=== PATIENT | male | born 1965 | race Caucasian/White ===

== ENCOUNTER 2020-01-07 08:47 | Emergency (ER) | payer BC, SELFPAY ==
--- NOTE | ~2020-01-07 | XR_ITS ---
EXAMINATION: XR ribs RT 2V INDICATION: Rib pain after fall, initial encounter TECHNIQUE: 3 views of the right ribs were obtained. COMPARISON: None. FINDINGS: The 12th ribs are hypoplastic. There are acute fractures of the right eighth through 10th r ibs. There is no pleural effusion or pneumothorax. The visualized portions of the heart are normal. T here appear to be surgical changes of the right shoulder. IMPRESSION: 1. Acute fractures of the right eighth through 10th ribs. Reviewed, dictated and finalized at location B.
[2020-01-07 08:55] VITALS: BP 129/80; PULSE 65; RESP 18; TEMP 36.2; O2SAT 99
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
== END 2020-01-07 09:53 | disposition home or self-care (01) ==
PROVIDERS: Emergency Provider Nurse Practitioner Family; PCP Internal Medicine
DX: S22.41XA Multiple fractures of ribs, right side, initial encounter for closed fracture (principal); V94.89XA Other water transport accident, initial encounter; F41.9 Anxiety disorder, unspecified
CPT/HCPCS: 71100; 99213; G0463